=== PATIENT | male | born 1955 | race Caucasian/White ===

== ENCOUNTER 2018-07-30 10:14 | Day surgery (SDC) | payer OTHER, SELFPAY ==
[2018-07-30] VITALS (7 sets, daily range): BP systolic 118–142; BP diastolic 65–89; PULSE 64–76; RESP 16; TEMP 36–36.6; O2SAT 92–97; BMI 33.1
--- NOTE | 2018-07-30 10:39 | EKG12_ITS ---
Test Reason : PRE OP Blood Pressure : / mmHG Vent. Rate : 070 BPM Atrial Rate : 070 BPM P-R Int : 170 ms QRS Dur : 148 ms QT Int : 428 ms P-R-T Axes : 035 -44 004 degrees QTc Int : 462 ms Normal sinus rhythm Left axis deviation Right bundle branch block Abnormal ECG Confirmed by MAXIME MARSHALL, SIM ([id number]), editorial intern OMAR VEGA ([id number]) on 08/04/2018 1:40:24 PM Referred By: Hank Aivna Confirmed By:SIM SWARTZ MD
[2018-07-30 11:09] LABS: Hematocrit 44.3 % (40-54); Hemoglobin 14.8 g/dl (13.0-16.5); Mean Corp Hgb Conc 33.4 g/gl (32-36); Mean Corpuscular Volume 89.7 fL (80-94); Mean Platelet Vol. 9.4 fl (6.2-12.0); Platelet Count 238 K/mm3 (150-450); RBC Distribution Width CV 14.5 % (11.6-14.6); RBC Distribution Width SD 47.4 fl (35.1-43.9); Red Blood Count 4.94 M/mm3 (4.6-6.2); White Blood Count 7.8 K/mm3 (4.4-11.0)
[2018-07-30 11:10] LABS: Scan Indicated on CBC? Y/N NO
[2018-07-30 11:21] LABS: Anion Gap 5 (5-15); BUN 17 mg/dL (7-18); BUN/Creat Ratio 17.7 RATIO (10-20); Calcium,Total 8.7 mg/dL (8.5-10.1); Chloride 104 mmol/L (98-107); Creatinine, Serum 0.96 mg/dL (0.70-1.30); EST Glomerular Filtration Rate 84 mL/min (>60); Est Glom Filt Rate - Afr Amer 101 mL/min (>60); Estimated Creatinine Clearance 79.21 ml/min; Glucose 172 mg/dL (74-106); Sodium Level 137 mmol/L (136-145)
[2018-07-30 11:32] LABS: Hemoglobin A1c 8.4 % (4.2-6.3)
[2018-07-30] MEDS: Oxymetazoline 0.05% 1 SPRAY SPRAY.BTL 15 SPRAY (11:56)
[2018-07-30] MEDS: Lidocaine 4% 50 ML Bottle (11:56)
--- NOTE | 2018-07-30 12:00 | ETH_PTH ---
PATIENT: CARRINGTON POWELL LOC: [facility] [place] U#:[id number] AGE/SX: 63/M ROOM: RE07/30/[address]: Dr. Hank Avina MD : [id number] BED: DIS: 07/30/2018 SPEC #: [id number] RECD: 07/30/18 16:37 STATUS: MARIA GUADALUPE REDelmy #: [id number] LEE ANN: 07/30/18 12:[address]: Hank Avina DEPT: SURGICAL PATHOLOGY RECD BY: Sahil Burks ENTERED: 08/02/18 10:18 SP TYPE: ETH TISS OTHR DR: Dr. Denton Reeves MD Tissues: Ethmoid sinus, NOS Procedures: Surgery Specimen Level IV HEADER OPERATION: Endoscopic sinus nasal maxillary antrostomy, partial ethmoidectomy PRE-OP DIAGNOSIS: Chronic maxillary sinusitis TISSUE SUBMITTED: Left maxillary and ethmoid sinus tissue MICROSCOPIC DIAGNOSIS Left maxillary and ethmoid sinus tissue: Fragments of respiratory mucosa with chronic inflammation and bone. DOROTHY:ken 08/03/18 MICROSCOPIC DESCRIPTION Slides are reviewed. GROSS DESCRIPTION Received in fixative is one container labeled with the patient's name and designated left maxillary sinus tissue and ethmoid sinus tissue. The specimen consists of multiple fragments of light duran, gritty soft tissue measuring in aggregate 2.8 x 1.6 x 0.1 cm. The specimen is totally submitted in one cassette. / AM:ken 08/02/18 TC:3 CPT: 07966
--- NOTE | 2018-07-30 12:47 | PCM.OPRPT ---
Problem List (1) Chronic maxillary sinusitis Status: Chronic (2) Chronic ethmoidal sinusitis Status: Chronic Report of Operation Date of Procedure: 07/30/18 Pre-Operative Diagnosis: Chronic left maxillary sinusitis with cyst, facial pain, chronic ethmoid sinusitis Post-Operative Diagnosis: same Surgery/Procedure Performed:: Left maxillary antrostomy with removal of tissue (cyst0, left partial ethmoidectomy Description of Surgical Findings:: Justice is a 63-year-old male presents for evaluation of chronic left-sided facial pain. Examination was fairly unremarkable with imaging showing a large cyst along the posterior wall of the maxillary sinus and given the absence of other expansions for his pain was suggested as the probable cause. Surgical treatment was offered in hopes of alleviation of his pain as well as confirmation of this is his pain source to allow for further management of his pain should this fail to resolve this complaint. The risks, alternatives, potential complications, and benefits were discussed at length and any questions answered to the patient and/or caregiver's satisfaction. Witnessed informed consent was obtained in the office, and the patient and/or caregiver was agreeable to proceed. Procedure went as follows: The patient was identified in the preoperative holding and brought to the operating room, was placed under general anesthesia and intubated. When appropriate anesthesia was obtained, pledgets soaked in a 50-50 mixture of oxymetazoline and 4% topical lidocaine were placed to decongest the nasal mucosa. These were then removed and beginning on the left side using a 0? endoscope the nasal cavity examined. The insertion of the middle turbinate and uncinate process was then injected with 1% lidocaine with 100,000 epinephrine for a total of 2 mL. On the left side, the middle turbinate was medialized with a [place] elevator. This allowed examination of the maxillary sinus ostia which was then probed with a double ball seeker. The uncinate process was then outfractured with a J curette and transected with a backbiting forceps. The ethmoid bulla was noted to be low-lying and obstructed access and visualization to the remainder of the maxillary ostia and this was then entered and removed along with the superior ethmoid cells to allow for visualization of the maxillary antrum. A wide maxillary antrostomy was then created. Using a 30 degree endoscope the maxillary sinus cavity was then examined. Within the posterior aspect of the maxillary sinus there is noted to be a large cystic mass. This was then grasped with a giraffe forceps and the overlying epithelium removed and sent as pathologic specimen. A large quantity of purulent appearing cystic material was then aspirated and irrigated until clear with saline solution. Pledgets soaked in oxymetazoline were then placed for hemostasis. Floseal hemostatic agent was then applied. An NG tube was then placed to decompress the stomach and the patient returned to anesthesia, revived and extubated having tolerated the procedure well. Type of Anesthesia:: General Anesthesiologist: Hank Castellanos Special Medications: none Specimen's removed: left maxillary sinus cyst, ethmoid sinus Drains: none Estimated Blood Loss (mL): 10 mL Fluids Replaced: 850 mL Grafts/Implants Used: none - Complications none - Admit VTE Documentation VTE Present on Admission: No VTE Mechan Device Prophylaxis: SCD's VTE Pharm Prophylaxis ordered?: No
--- NOTE | 2018-07-30 12:56 | PCM.DC ---
- Discharge Diagnoses Current Active Problems: Current Active and Chronic Problems Chronic maxillary sinusitis (Chronic) Chronic ethmoidal sinusitis (Chronic) You will use the following diet at home:: Regular Discharge Activity: Return to Normal Activity Call your doctor if your incision/area has: Sudden Increased Bleeding Call your doctor if you observe: Fever of 101 or Higher, Uncontrolled pain Allergies/Adverse Reactions: Allergies Penicillins Allergy (Verified 07/23/18 10:09) Rash Medications to take at Discharge Acetaminophen [Tylenol Extra Strength] 500 - 1,000 mg PO Q6H PRN PRN 07/23/18 Atorvastatin Calcium [Lipitor] 40 mg PO QHS 07/23/18 Glimepiride [Amaryl] 1 mg PO DAILY 07/23/18 Ibuprofen [Ibu] 400 mg PO PRN PRN 07/23/18 Lisinopril/Hydrochlorothiazide [Lisinopril-Hctz 20-12.5 mg Tab] 1 each PO DAILY 07/23/18 Naproxen Sodium [Aleve] 220 mg PO PRN PRN 07/23/18 Pseudoephedrine HCl [Sudafed 12 Hour] 120 mg PO QHS 07/23/18 RX: Pioglitazone HCl 30 mg PO DAILY 07/23/18 Primary Care Physician: Denton Reeves MD [Primary Care Provider] - Test Results: Test results from this visit will be discussed in further detail at your follow-up appointment, if applicable. Please Follow Up With: Hank Avina MD When: 2 weeks
[2018-07-30 13:16] LABS: Bedside Glucose 160 mg/dL (70-110)
--- NOTE | 2018-07-30 13:19 | DCINST_ITS ---
- Discharge Diagnoses Current Active Problems: Current Active and Chronic Problems Chronic maxillary sinusitis (Chronic) Chronic ethmoidal sinusitis (Chronic) You will use the following diet at home:: Regular Discharge Activity: Return to Normal Activity Call your doctor if your incision/area has: Sudden Increased Bleeding Call your doctor if you observe: Fever of 101 or Higher, Uncontrolled pain Allergies/Adverse Reactions: Allergies Penicillins Allergy (Verified 07/23/18 10:09) Rash Medications to take at Discharge Acetaminophen [Tylenol Extra Strength] 500 - 1,000 mg PO Q6H PRN PRN 07/23/18 Atorvastatin Calcium [Lipitor] 40 mg PO QHS 07/23/18 Glimepiride [Amaryl] 1 mg PO DAILY 07/23/18 Ibuprofen [Ibu] 400 mg PO PRN PRN 07/23/18 Lisinopril/Hydrochlorothiazide [Lisinopril-Hctz 20-12.5 mg Tab] 1 each PO DAILY 07/23/18 Naproxen Sodium [Aleve] 220 mg PO PRN PRN 07/23/18 Pseudoephedrine HCl [Sudafed 12 Hour] 120 mg PO QHS 07/23/18 RX: Pioglitazone HCl 30 mg PO DAILY 07/23/18 Primary Care Physician: Denton Reeves MD [Primary Care Provider] - Test Results: Test results from this visit will be discussed in further detail at your follow- up appointment, if applicable. Please Follow Up With: Hank Avina MD When: 2 weeks
== END 2018-07-30 14:37 | disposition home or self-care (01) ==
LOC: SDC 10:14 → ACINP 10:17 → AC 10:34
PROVIDERS: Anesthesiology; Family Provider Family Medicine; PCP Family Medicine; Referring Provider Otolaryngology; Visit Provider Otolaryngology
PROC: (CPT 31254; principal; 2018-07-30 11:30)
DX: J32.0 Chronic maxillary sinusitis (principal); J32.2 Chronic ethmoidal sinusitis; E11.9 Type 2 diabetes mellitus without complications; Z79.899 Other long term (current) drug therapy; I10 Essential (primary) hypertension; I45.10 Unspecified right bundle-branch block; Z79.84 Long term (current) use of oral hypoglycemic drugs; Z87.891 Personal history of nicotine dependence; E78.5 Hyperlipidemia, unspecified; Z85.46 Personal history of malignant neoplasm of prostate; Z85.828 Personal history of other malignant neoplasm of skin
CPT/HCPCS: 31254; 31267; 80048; 82962; 83036; 85027; 88305; 93005; J7120; J2405; J3490